=== PATIENT | male | born 1935 | race Caucasian/White ===

== ENCOUNTER 2020-05-28 01:53 | Inpatient (IN) | payer MEDICARE ==
[~2020-05-28] VITALS: Ht 167.6 cm; Wt 61.2 kg
[2020-05-28] MEDS ORDERED: SODIUM CHLORIDE 0.9% 1000ML 1,000 ML IV STA ×2 (02:16→02:22)
[2020-05-28] MEDS ORDERED: PIPER-TAZ 3.375 GM 50 ML IV SCH (02:30)
[2020-05-28 03:15] LABS: BASOPHILS # (AUTO) 0.1 (0.0-0.1); BASOPHILS % 0.7 % (0.0-1.0); EOSINOPHILS # (AUTO) 0.2 (0.0-0.4); EOSINOPHILS % 0.9 % (0.0-6.0); HEMATOCRIT 39.9 % (38.2-49.6); HEMOGLOBIN 13.1 g/dL (14.0-18.0); LYMPHOCYTES # (AUTO) 2.9 (1.0-3.2); LYMPHOCYTES % 15.8 % (18.0-39.1); MEAN CORPUSCULAR HEMOGLOBIN 32.7 pg (28-32); MEAN CORPUSCULAR HGB CONC 32.8 g/dL (31-35); MEAN CORPUSCULAR VOLUME 99.5 fL (81-99); MONOCYTES # (AUTO) 1.9 (0.2-0.8); MONOCYTES % 10.4 % (4.4-11.3); NEUTROPHILS % 71.5 % (38.7-80.0); PLATELET COUNT 290 x10e3/uL (140-360); RED BLOOD COUNT 4.01 x10e6/uL (4.3-5.7); RED CELL DISTRIBUTION WIDTH 14.4 % (11.7-14.4)
[2020-05-28] MEDS ORDERED: LEVOFLOXACIN 750MG/D5W 150ML 150 ML IV ONE (03:15)
[2020-05-28 03:27] LABS: ALBUMIN 2.5 g/dL (3.5-5.0); ALBUMIN/GLOBULIN RATIO 0.6 (0.8-2.0); ANION GAP 17.5 mmol/L (8-16); CALCIUM 8.4 mg/dL (8.4-10.2); CREATININE, SERUM 2.33 mg/dL (0.72-1.25); POTASSIUM 4.5 mmol/L (3.5-5.1)
[2020-05-28 03:33] LABS: CREATINE KINASE MB 4.9 ng/mL (0-5.0)
[2020-05-28] MEDS ORDERED: SODIUM CHLORIDE 0.9% 1000ML 1,000 ML IV SCH (03:45)
[2020-05-28 04:32] LABS: B-TYPE NATRIURETIC PEPTIDE2 105.8 pg/mL (0-100)
[2020-05-28] MEDS ORDERED: SIMVASTATIN20 MG PO (06:37)
[2020-05-28] MEDS ORDERED: ALLOPURINOL300 MG PO (06:37)
[2020-05-28] MEDS ORDERED: MIRTAZAPINE15 MG PO (06:37)
[2020-05-28] MEDS ORDERED: ACETAMINOPHEN325 M1 PO (06:37)
[2020-05-28] MEDS ORDERED: FLOMAX0.4 MG PO (06:37)
[2020-05-28] MEDS ORDERED: ARICEPT5 MG PO (06:37)
[2020-05-28] MEDS ORDERED: LISINOPRIL10 MG PO (06:37)
[2020-05-28] MEDS ORDERED: FINASTERIDE5 MG PO (06:37)
[2020-05-28] MEDS ORDERED: ELIQUIS5 MG PO (06:37)
[2020-05-28] MEDS ORDERED: ASPIRIN CHEW81 MG PO (06:37)
[2020-05-28] MEDS ORDERED: NAMENDA5 MG PO (06:37)
[2020-05-28] MEDS ORDERED: FAMOTIDINE20 MG PO (06:37)
[2020-05-28] MEDS ORDERED: COMBIVENT RESPIM4 GM IH (06:37)
[2020-05-28] MEDS ORDERED: VITAMIN B-121000 MCG PO (06:37)
[2020-05-28] MEDS ORDERED: DEPAKOTE SPRIN125 MG PO (06:37)
[2020-05-28] MEDS ORDERED: METOPROLOL TART50 MG PO (06:37)
[2020-05-28] MEDS ORDERED: VANCOMYCIN 1GM/NS 250 ML 250 ML IV STA (06:51)
[2020-05-28] MEDS ORDERED: ASPIRIN 81 MG CHEW TAB PO ONE (07:00)
[2020-05-28] MEDS ORDERED: VANCOMYCIN 1GM/NS 250 ML 250 ML IV ONE (07:00)
[2020-05-28 07:17] LABS: CLARITY,URINE TURBID (CLEAR); COLOR,URINE AMBER (YELLOW); LEUKOCYTE ESTERASE ,URINE TRACE (NEGATIVE); NITRITE,URINE NEGATIVE (NEGATIVE)
[2020-05-28 07:18] LABS: KETONES,URINE NEGATIVE (NEGATIVE); PROTEIN,URINE DIPSTICK >=300 (NEGATIVE); URINE UROBILINOGEN 0.2 mg/dL (0.2 - 1)
[2020-05-28 07:24] LABS: BACTERIA,URINE MANY /HPF; RBC,URINE >50 /HPF (0-5)
[2020-05-28] MEDS: SODIUM CHLORIDE 0.9% 1000ML 1,000 ML IV SCH ×3 (07:55→21:04)
[2020-05-28] MEDS ORDERED: NOREPINEPHRINE INJ 4MG/4ML 8 MG in DEXTROSE 5% 250ML 250 ML IV STA (08:52)
[2020-05-28] MEDS ORDERED: NOREPINEPHRINE 8 MG/D5W 250 ML 250 ML ONE (09:03)
[2020-05-28] MEDS ORDERED: ZIPRASIDONE 20 MG VIAL IM PRN (10:15)
[2020-05-28] MEDS ORDERED: METOPROLOL TARTRATE INJ 1 MG/ML VIAL IV PRN (10:15)
[2020-05-28] MEDS: FAMOTIDINE 20 MG/2 ML VIAL IV SCH ×2 (10:26→17:40)
[2020-05-28] MEDS: MEROPENEM 1GM 100 ML IV SCH ×2 (10:26→21:04)
[2020-05-28 13:35] LABS: CREATINE KINASE MB 5.5 ng/mL (0-5.0)
[2020-05-28] MEDS ORDERED: ALBUTEROL/IPRATROPIUM 3 ML NEB NEB PRN (14:30)
[2020-05-28] MEDS: MEMANTINE 10 MG TAB PO SCH (17:40)
[2020-05-28 20:00] VITALS: BP 77/43
[2020-05-28 21:15] VITALS: BP 77/43
[2020-05-28 22:38] VITALS: BP 77/43
[2020-05-28 22:50] LABS: CREATINE KINASE MB 4.1 ng/mL (0-5.0)
[2020-05-29] VITALS (24 sets, daily range): BP systolic 71–148; BP diastolic 35–95
[2020-05-29] MEDS ORDERED: SODIUM CHLORIDE 0.9% 250ML 250 ML IV ONE (00:15)
[2020-05-29] MEDS: SODIUM CHLORIDE 0.9% 1000ML 1,000 ML IV SCH ×3 (04:33→23:00)
[2020-05-29 06:29] LABS: BASOPHILS # (AUTO) 0.1 (0.0-0.1); BASOPHILS % 0.7 % (0.0-1.0); EOSINOPHILS % 0.2 % (0.0-6.0); HEMATOCRIT 31.6 % (38.2-49.6); HEMOGLOBIN 10.3 g/dL (14.0-18.0); LYMPHOCYTES # (AUTO) 1.8 (1.0-3.2); LYMPHOCYTES % 14.9 % (18.0-39.1); MEAN CORPUSCULAR HEMOGLOBIN 33.2 pg (28-32); MEAN CORPUSCULAR HGB CONC 32.6 g/dL (31-35); MEAN CORPUSCULAR VOLUME 101.9 fL (81-99); MONOCYTES # (AUTO) 1.7 (0.2-0.8); MONOCYTES % 13.7 % (4.4-11.3); NEUTROPHILS # (AUTO) 8.5 (2.1-6.9); NEUTROPHILS % 69.4 % (38.7-80.0); PLATELET COUNT 202 x10e3/uL (140-360); RED CELL DISTRIBUTION WIDTH 14.4 % (11.7-14.4)
[2020-05-29 07:07] LABS: CREATINE KINASE MB 4.1 ng/mL (0-5.0)
[2020-05-29 07:28] LABS: ALANINE AMINOTRANSFERASE 32 IU/L (0-55); ALBUMIN 1.9 g/dL (3.5-5.0); ALBUMIN/GLOBULIN RATIO 0.6 (0.8-2.0); ALKALINE PHOSPHATASE 186 IU/L (40-150); ANION GAP 12.4 mmol/L (8-16); BLOOD UREA NITROGEN 37 mg/dL (7-26); BUN/CREATININE RATIO 39 (6-25); CARBON DIOXIDE 21 mmol/L (22-29); CHLORIDE 113 mmol/L (98-107); EST GLOMERULAR FILTRATION RATE > 60 ML/MIN (60-); GLUCOSE 80 mg/dL (74-118); POTASSIUM 4.4 mmol/L (3.5-5.1); SODIUM 142 mmol/L (136-145)
[2020-05-29 07:32] LABS: CALCIUM 7.1 mg/dL (8.4-10.2); CREATININE, SERUM 0.94 mg/dL (0.72-1.25)
[2020-05-29] MEDS: FAMOTIDINE 20 MG/2 ML VIAL IV SCH ×2 (08:16→16:40)
[2020-05-29] MEDS: MEMANTINE 10 MG TAB PO SCH ×2 (08:16→16:40)
[2020-05-29] MEDS: MEROPENEM 1GM 100 ML IV SCH ×2 (10:15→22:42)
[2020-05-30] VITALS (8 sets, daily range): BP systolic 95–140; BP diastolic 59–76
[2020-05-30] MEDS: MEMANTINE 10 MG TAB PO SCH ×3 (09:00→14:54)
[2020-05-30] MEDS: FAMOTIDINE 20 MG/2 ML VIAL IV SCH ×2 (09:07→17:21)
[2020-05-30] MEDS: SODIUM CHLORIDE 0.9% 1000ML 1,000 ML IV SCH ×2 (09:07→21:10)
[2020-05-30] MEDS: MEROPENEM 1GM 100 ML IV SCH ×3 (10:15→21:10)
[2020-05-30] MEDS ORDERED: ENOXAPARIN SOD INJ 40 MG/0.4 ML SYR SC SCH (17:00)
[2020-05-31 02:10] VITALS: BP 131/54
[2020-05-31 05:32] LABS: BASOPHILS # (AUTO) 0.1 (0.0-0.1); BASOPHILS % 0.7 % (0.0-1.0); EOSINOPHILS # (AUTO) 0.1 (0.0-0.4); EOSINOPHILS % 0.9 % (0.0-6.0); HEMOGLOBIN 10.9 g/dL (14.0-18.0); LYMPHOCYTES # (AUTO) 2.4 (1.0-3.2); LYMPHOCYTES % 17.7 % (18.0-39.1); MEAN CORPUSCULAR HGB CONC 32.1 g/dL (31-35); MEAN CORPUSCULAR VOLUME 99.7 fL (81-99); MONOCYTES # (AUTO) 1.5 (0.2-0.8); MONOCYTES % 10.7 % (4.4-11.3); NEUTROPHILS # (AUTO) 9.4 (2.1-6.9); NEUTROPHILS % 69.3 % (38.7-80.0); PLATELET COUNT 225 x10e3/uL (140-360); RED BLOOD COUNT 3.41 x10e6/uL (4.3-5.7); RED CELL DISTRIBUTION WIDTH 14.2 % (11.7-14.4)
[2020-05-31 05:57] LABS: BUN/CREATININE RATIO 32 (6-25); CARBON DIOXIDE 20 mmol/L (22-29); CHLORIDE 121 mmol/L (98-107); CREATININE, SERUM 0.53 mg/dL (0.72-1.25); EST GLOMERULAR FILTRATION RATE > 60 ML/MIN (60-); SODIUM 146 mmol/L (136-145)
[2020-05-31 06:00] VITALS: BP 128/63
[2020-05-31 06:05] LABS: BLOOD UREA NITROGEN 17 mg/dL (7-26); CALCIUM 5.7 mg/dL (8.4-10.2); GLUCOSE 58 mg/dL (74-118)
[2020-05-31 08:00] VITALS: BP 113/64
[2020-05-31] MEDS ORDERED: D5/.45NS KCL 40MEQ **PREMIX BAG 1000ML IV SCH (08:15)
[2020-05-31 08:20] VITALS: BP 113/64
[2020-05-31] MEDS ORDERED: POTASSIUM CHLORIDE 10MEQ EA PO ONE (09:00)
[2020-05-31] MEDS ORDERED: POTASSIUM CHLORIDE 40 MEQ in DEXTROSE 5%/0.45% SOD CHL 1,000 ML IV SCH (09:30)
[2020-05-31] MEDS: FAMOTIDINE 20 MG/2 ML VIAL IV SCH (10:06)
[2020-05-31] MEDS: MEROPENEM 1GM 100 ML IV SCH (10:06)
[2020-05-31] MEDS: MEMANTINE 10 MG TAB PO SCH (10:06)
[2020-05-31 11:54] VITALS: BP 115/58
[2020-05-31] MEDS ORDERED: LOVENOX40 MG/0.4 SC (15:04)
[2020-05-31 15:54] VITALS: BP 124/60
== END 2020-05-31 16:05 | disposition hospice, inpatient (51) | DRG 871 ==
LOC: ER 01:57 → ERHOLD 06:51 → MED/SURG2 19:07 → ICU 05-29 04:15 → MED/SURG2 05-29 23:21
PROVIDERS: ADMIT Internal Medicine; ATTEND Internal Medicine
PROC: 02HV33Z Insertion of Infusion Device into Superior Vena Cava, Percutaneous Approach (ICD-10-PCS; principal; 2020-05-28)
PROC: B548ZZA Ultrasonography of Superior Vena Cava, Guidance (ICD-10-PCS; 2020-05-28)
PROC: 3E043XZ Introduction of Vasopressor into Central Vein, Percutaneous Approach (ICD-10-PCS; 2020-05-28)
DX: A41.9 Sepsis, unspecified organism (principal); R65.21 Severe sepsis with septic shock; E43 Unspecified severe protein-calorie malnutrition; N17.9 Acute kidney failure, unspecified; F03.91 Unspecified dementia, unspecified severity, with behavioral disturbance; D62 Acute posthemorrhagic anemia; N39.0 Urinary tract infection, site not specified; N41.0 Acute prostatitis; R62.7 Adult failure to thrive; Z88.0 Allergy status to penicillin; Z88.8 Allergy status to other drugs, medicaments and biological substances; R09.02 Hypoxemia; Z74.01 Bed confinement status; I25.10 Atherosclerotic heart disease of native coronary artery without angina pectoris; Z95.1 Presence of aortocoronary bypass graft; I48.91 Unspecified atrial fibrillation; Z79.01 Long term (current) use of anticoagulants; K21.9 Gastro-esophageal reflux disease without esophagitis; N40.1 Benign prostatic hyperplasia with lower urinary tract symptoms; R33.8 Other retention of urine; Z68.21 Body mass index [BMI] 21.0-21.9, adult; Z20.822 Contact with and (suspected) exposure to COVID-19; E86.0 Dehydration
CPT/HCPCS: 36415; 36555; 51700; 71045; 80048; 80053; 81001; 82550; 82553; 82948; 83605; 83880; 84484; 85025; 86850; 86900; 86920; 87040; 93005; 99285; J1650; J3370; J3480; J7030; U0002